=== PATIENT | male | born 1950 | race Two or more races ===

== ENCOUNTER 2024-07-20 20:13 | Inpatient (IN) | payer OTHER ==
[~2024-07-20] VITALS: Ht 175.3 cm; Wt 82.6 kg
[2024-07-20 20:48] VITALS: PULSE 120; RESP 20; O2SAT 100
[2024-07-20 20:48] LABS: APPEARANCE,URINE CLEAR (CLEAR); BILIRUBIN,URINE NEGATIVE (NEGATIVE); COLOR,URINE YELLOW (YELLOW); GLUCOSE, URINE (UA) NEGATIVE (NEGATIVE); KETONES,URINE NEGATIVE (NEGATIVE); LEUKOCYTE ESTERASE ,URINE NEGATIVE (NEGATIVE); NITRATE,URINE NEGATIVE (NEGATIVE); OCCULT BLOOD,URINE MODERATE (NEGATIVE); PH,URINE 5.5 (5.0-8.0); PH,URINE DRUG SCREEN 5.5 (5.0-8.0); PROTEIN,URINE 30-70 mg/dL (NEGATIVE); UROBILINOGEN,URINE <=1.0 mg/dL (<=1.0)
[2024-07-20 20:48] LABS: BASOPHILS % (AUTO) 0.3 % (0.0-2.0); EOSINOPHILS % (AUTO) 0.1 % (1.0-6.0); HEMATOCRIT 30.5 % (41-53); HEMOGLOBIN 9.9 g/dL (13.5-17.5); LYMPHOCYTES # (AUTO) 1.3 K/uL (1.0-4.8); LYMPHOCYTES % (AUTO) 13.1 % (22.0-44.0); MEAN CORPUSCULAR HEMOGLOBIN 30.2 pg (26.0-34.0); MEAN CORPUSCULAR HGB CONC 32.5 G/dL (31.0-37.0); MEAN CORPUSCULAR VOLUME 93 fL (80-100); MONOCYTES # (AUTO) 0.4 K/uL (0.1-1.0); MONOCYTES % (AUTO) 4.3 % (2.0-9.0); NEUTROPHILS # (AUTO) 8.3 K/uL (1.8-7.7); NEUTROPHILS % (AUTO) 82.2 % (40.0-70.0); PLATELET COUNT (AUTO) 213 K/uL (150-450); RED BLOOD CELL COUNT(AUTO) 3.28 MIL/uL (4.50-5.90); RED CELL DISTRIBUTION WIDTH 16.1 % (11.5-14.5); WHITE BLOOD COUNT (AUTO) 10.1 K/uL (4.5-11.0)
[2024-07-20 20:54] LABS: WBC,URINE 0-2 /HPF (0-5)
[2024-07-20 20:55] LABS: ANION GAP 16 mmol/L (8-16); CALCIUM, TOTAL 8.8 mg/dL (8.8-10.5); CARBON DIOXIDE 19 mmol/L (22-29); CHLORIDE 104 mmol/L (98-107); CREATININE 2.63 mg/dL (0.60-1.30); GLOMERULAR FILTR. RATE CALC 24 mL/min (>60); GLUCOSE,RANDOM 160 mg/dL (70-110); POTASSIUM 5.1 mmol/L (3.5-5.1); SODIUM SERUM 139 mmol/L (136-145); UREA NITROGEN, BLOOD 19 mg/dL (7-18)
[2024-07-20 20:55] LABS: ALCOHOL, URINE DRUG SCREEN NEGATIVE (NEGATIVE); AMPHET/METH SCREEN,URINE NEGATIVE (NEGATIVE); BACTERIA,URINE Few /HPF (None Seen); BARBITURATE SCREEN, URINE NEGATIVE (NEGATIVE); BENZODIAZEPINES SCREEN,URINE NEGATIVE (NEGATIVE); CANNABINOID SCREEN,URINE NEGATIVE (NEGATIVE); COCAINE SCREEN,URINE NEGATIVE (NEGATIVE); HYALINE CASTS, URINE 0-2 /LPF (None Seen); METHADONE SCREEN, URINE NEGATIVE (NEGATIVE); MUCUS,URINE Few LPF (None Seen); OPIATE SCREEN,URINE NEGATIVE (NEGATIVE); PHENCYCLIDINE SCREEN,URINE NEGATIVE (NEGATIVE); SQUAMOUS EPITHELIAL CELL,UR Few /LPF (None Seen)
[2024-07-20 20:57] LABS: ALCOHOL, BLOOD (SERUM) < 3 mg/dL (0-10); LIPASE 54 U/L (16-77)
[2024-07-20] MEDS ORDERED: IOHEXOL 350 MG/ML 100 ML VIAL ONE (20:58)
[2024-07-20] MEDS ORDERED: SODIUM CHLORIDE 0.9% 100 ML ONE (20:58)
[2024-07-20] MEDS ORDERED: 0.9% SODIUM CHLORIDE 10 ML SYRINGE IVP ONE (20:58)
[2024-07-20 21:00] LABS: PROTHROMBIN TIME 11.2 SEC (9.4-11.6)
[2024-07-20 21:03] LABS: HEMOGLOBIN A1C 5.4 % (3.8-5.6)
[2024-07-20 21:08] LABS: B-TYPE NATRIURETIC PEPTIDE 42 pg/mL (0-100)
[2024-07-20 21:12] LABS: LACTIC ACID 9.9 mmol/L (0.4-2.0)
[2024-07-20 21:13] LABS: ALANINE AMINOTRANSFERASE 31 U/L (12-78); ALBUMIN 3.6 g/dL (3.4-5.0); ALKALINE PHOSPHATASE 59 U/L (46-116); ASPARTATE AMINOTRANSFERASE 37 U/L (15-37); BILIRUBIN,TOTAL 0.9 mg/dL (0.1-1.0); CHOL/HDL RATIO 4.3 (4.2-7.3); CHOLESTEROL 243 mg/dL (131-200); HDL CHOLESTEROL 57 mg/dL (40-60); LDL CHOL (CALC.) 132 mg/dL (0-130); TOTAL PROTEIN, SERUM 6.8 g/dL (6.4-8.2); TRIGLYCERIDES 270 mg/dL (15-150); TROPONIN I-HIGH SENSITIVITY 24 ng/L (<76)
[2024-07-20 21:34] LABS: ABG BASE EXCESS -13.4 mmol/L (-2.0-3.0); ABG CARBOXYHEMOGLOBIN 0.6 % (0.5-1.5); ABG HCO3 14.4 mmol/L (21.0-28.0); ABG OXYGEN CONTENT 14.4 mL/dL (15.0-23.0); ABG OXYGEN SATURATION 99.7 % (94.0-98.0); ABG OXYHEMOGLOBIN 98.1 % (94.0-98.0); ABG PCO2 43 mmHg (32.0-48.0); ABG TOTAL HEMOGLOBIN 9.6 G/dL (13.5-17.5); SOURCE, BLOOD GAS ARTERIAL; TEMPERATURE, FAHRENHEIT, BG 94.9 FAHREN (96.0-98.6)
[2024-07-20 21:35] LABS: ABG PH 7.169 (7.350-7.450); ALLEN TEST, BLOOD GAS Positive; O2 DEVICE,BLOOD GAS VENTILATOR (ROOM AIR); PEEP,BG 5 cm H2O; PO2, ARTERIAL BG 393.7 mmHg (83.0-108.0); SITE, BLOOD GAS RT RADIAL; SPONTANEOUS VT, BG 413 ml; VT, ABG 410 ml
[2024-07-20] MEDS: SODIUM CHLORIDE 0.9% 2,350 ML IV ONE (21:44)
[2024-07-20] MEDS: CefTRIAXone 1 GM/DEXTROSE 50 ML IV ONE (21:44)
[2024-07-20 22:04] LABS: ACETAMINOPHEN < 2 mcg/mL (10-30)
[2024-07-20] MEDS: PERTUSS(ACELL),DIPH,TET/PF 0.5 ML SYRINGE [ADULT] IM. ONE (22:26)
[2024-07-20] MEDS: LevETIRAcetam 1,000 MG in DEXTROSE 5%-WATER 100 ML IV ONE (22:29)
[2024-07-20] MEDS: PIPERACILLIN SODIUM/TAZOBACTAM 2.25 GM in DEXTROSE 5%-WATER 50 ML IV SCH (22:29)
[2024-07-20] MEDS ORDERED: ACETAMINOPHEN 650 MG RECTAL SUPPOSITORY PR PRN (22:30)
[2024-07-20] MEDS ORDERED: ZOLPIDEM TARTRATE 5 MG TABLET PO PRN (22:30)
[2024-07-20] MEDS ORDERED: ONDANSETRON HCL 4 MG/2 ML VIAL IVP PRN (22:30)
[2024-07-20] MEDS ORDERED: MAGNESIUM HYDROXIDE SUSPENSION 30 ML UDCUP PO PRN (22:30)
[2024-07-20] MEDS ORDERED: BISACODYL 10 MG RECTAL RECTAL SUPPOSITORY PR PRN (22:30)
[2024-07-20 22:52] VITALS: PULSE 63; RESP 20; O2SAT 100
[2024-07-20] MEDS: VANCOMYCIN 1GM/WATER(PEG/NADA) 200 ML IV ONE (23:21)
[2024-07-20] MEDS: SODIUM CHLORIDE 0.9% 1,000 ML IV ONE (23:21)
[2024-07-21] VITALS (15 sets, daily range): BP systolic 92–133; BP diastolic 54–71; PULSE 55–135; RESP 13–33; TEMP 92.7–99.7; O2SAT 94–99
[2024-07-21] MEDS: HEPARIN SODIUM,PORCINE 5,000 UNITS/ML VIAL SQ SCH (00:25)
[2024-07-21] MEDS: NOREPINEPHRINE 8 MG/0.9 % NACL 250 ML IV PRN ×2 (00:26→17:20)
[2024-07-21 03:05] LABS: TROPONIN I-HIGH SENSITIVITY 25 ng/L (<76)
[2024-07-21] MEDS: PROPOFOL 1000 MG/ISO-OSM 100 ML IV PRN ×2 (04:42→23:15)
[2024-07-21 06:27] LABS: CALCIUM, TOTAL 7.4 mg/dL (8.8-10.5); CREATININE 1.78 mg/dL (0.60-1.30); POTASSIUM 3.9 mmol/L (3.5-5.1)
[2024-07-21] MEDS: ETHYL ALCOHOL 62% ANTISEPTIC NASAL SANITIZER 0.6 ML AMPUL NASAL SCH (08:53)
[2024-07-21] MEDS: DOCUSATE SODIUM 100 MG CAPSULE PO SCH (08:54)
[2024-07-21] MEDS: VANCOMYCIN 750 MG/WATER(PEG) 150 ML IV SCH (08:54)
[2024-07-21] MEDS: PANTOPRAZOLE SODIUM 40 MG DR TABLET PO SCH (08:55)
[2024-07-21 09:44] LABS: TROPONIN I-HIGH SENSITIVITY 40 ng/L (<76)
[2024-07-21 10:21] LABS: ABG BASE EXCESS -7.9 mmol/L (-2.0-3.0); ABG CARBOXYHEMOGLOBIN 0.2 % (0.5-1.5); ABG HCO3 18.9 mmol/L (21.0-28.0); ABG METHEMOGLOBIN 0.3 % (0.0-1.5); ABG OXYGEN CONTENT 14.3 mL/dL (15.0-23.0); ABG OXYGEN SATURATION 95.2 % (94.0-98.0); ABG OXYHEMOGLOBIN 94.7 % (94.0-98.0); ABG PCO2 29 mmHg (32.0-48.0); ABG PH 7.392 (7.350-7.450); ABG TOTAL HEMOGLOBIN 10.7 G/dL (13.5-17.5); ALLEN TEST, BLOOD GAS Positive; PO2, ARTERIAL BG 76.8 mmHg (83.0-108.0); SITE, BLOOD GAS RT RADIAL; SOURCE, BLOOD GAS ARTERIAL; TEMPERATURE, FAHRENHEIT, BG 99.7 FAHREN (96.0-98.6)
[2024-07-21 10:22] LABS: ABG A-A DIFF O2 174.9 mmHg (10-20.0); O2 DEVICE,BLOOD GAS VENTILATOR (ROOM AIR); PEEP,BG 5 cm H2O; SPONTANEOUS VT, BG 765 ml; VT, ABG 410 ml
[2024-07-21] MEDS: FentaNYL CIT 1000MCG/0.9% NACL 100 ML IV PRN (12:53)
[2024-07-21] MEDS: PHENYLEPHRINE 200 MG/D5%-WATER 250 ML IV PRN (18:54)
[2024-07-21] MEDS: DIGOXIN 250 MCG/ML 2 ML AMP IVP ONE (23:35)
[2024-07-22] VITALS (16 sets, daily range): BP systolic 90–125; BP diastolic 46–69; PULSE 53–134; RESP 17–24; TEMP 92.1–98.8; O2SAT 93–99
[2024-07-22 05:29] LABS: BASOPHILS % (AUTO) 0.1 % (0.0-2.0); EOSINOPHILS % (AUTO) 0 % (1.0-6.0); HEMATOCRIT 32.9 % (41-53); HEMOGLOBIN 10.7 g/dL (13.5-17.5); LYMPHOCYTES # (AUTO) 1.3 K/uL (1.0-4.8); LYMPHOCYTES % (AUTO) 10.4 % (22.0-44.0); MEAN CORPUSCULAR HEMOGLOBIN 30.5 pg (26.0-34.0); MEAN CORPUSCULAR HGB CONC 32.5 G/dL (31.0-37.0); MEAN CORPUSCULAR VOLUME 94 fL (80-100); MONOCYTES % (AUTO) 8.3 % (2.0-9.0); NEUTROPHILS % (AUTO) 81.2 % (40.0-70.0); PLATELET COUNT (AUTO) 203 K/uL (150-450); RED CELL DISTRIBUTION WIDTH 16.7 % (11.5-14.5); WHITE BLOOD COUNT (AUTO) 12.3 K/uL (4.5-11.0)
[2024-07-22 05:40] LABS: CALCIUM, TOTAL 7.5 mg/dL (8.8-10.5); CREATININE 1.64 mg/dL (0.60-1.30); POTASSIUM 3.7 mmol/L (3.5-5.1)
[2024-07-22] MEDS ORDERED: VANCOMYCIN 1GM/WATER(PEG/NADA) 200 ML IV SCH (08:00)
[2024-07-22] MEDS ORDERED: SODIUM CHLORIDE 0.9% 250 ML IV ONE (08:06)
[2024-07-22] MEDS: VANCOMYCIN 1.25 GM/WATER(PEG) 250 ML IV SCH (08:10)
[2024-07-22] MEDS: DEXTROSE 5%-0.45% SODIUM CHL 1,000 ML IV SCH (08:55)
[2024-07-22] MEDS: PANTOPRAZOLE SODIUM 40 MG/VIAL IVP SCH (08:55)
[2024-07-22] MEDS: PIPERACILLIN/TAZO 3.375 GM/D5W 50 ML IV SCH (09:10)
[2024-07-22 11:39] LABS: CREATININE,URINE RANDOM 165.7 mg/dL (30.0-125.0)
[2024-07-22] MEDS: ALBUMIN HUMAN 5%-12.5GM/250ML 250 ML IV ONE (11:47)
[2024-07-22] MEDS: DIGOXIN 250 MCG/ML 2 ML AMP IVP ONE (14:09)
[2024-07-22] MEDS: AMIODARONE HCL 150 MG in DEXTROSE 5%-WATER 97 ML IV ONE (14:27)
[2024-07-22] MEDS: AMIODARONE HCL 360 MG in DEXTROSE 5%-WATER 242.8 ML IV ONE (14:41)
[2024-07-22] MEDS: AMIODARONE HCL 540 MG in DEXTROSE 5%-WATER 250 ML IV ONE (20:20)
[2024-07-23] VITALS (14 sets, daily range): BP systolic 101–169; BP diastolic 54–96; PULSE 43–130; RESP 11–34; TEMP 97.7–100.1; O2SAT 80–100
[2024-07-23 05:56] LABS: BASOPHILS % (AUTO) 0.1 % (0.0-2.0); EOSINOPHILS % (AUTO) 0.2 % (1.0-6.0); HEMATOCRIT 25.9 % (41-53); HEMOGLOBIN 8.8 g/dL (13.5-17.5); LYMPHOCYTES # (AUTO) 0.7 K/uL (1.0-4.8); LYMPHOCYTES % (AUTO) 8.8 % (22.0-44.0); MEAN CORPUSCULAR HEMOGLOBIN 30.9 pg (26.0-34.0); MEAN CORPUSCULAR HGB CONC 34.1 G/dL (31.0-37.0); MEAN CORPUSCULAR VOLUME 91 fL (80-100); MONOCYTES # (AUTO) 0.5 K/uL (0.1-1.0); MONOCYTES % (AUTO) 6.6 % (2.0-9.0); NEUTROPHILS # (AUTO) 6.5 K/uL (1.8-7.7); NEUTROPHILS % (AUTO) 84.3 % (40.0-70.0); PLATELET COUNT (AUTO) 181 K/uL (150-450); RED BLOOD CELL COUNT(AUTO) 2.85 MIL/uL (4.50-5.90); RED CELL DISTRIBUTION WIDTH 16.3 % (11.5-14.5); WHITE BLOOD COUNT (AUTO) 7.7 K/uL (4.5-11.0)
[2024-07-23 06:17] LABS: ALBUMIN 2.2 g/dL (3.4-5.0); BILIRUBIN,TOTAL 0.8 mg/dL (0.1-1.0); CALCIUM, TOTAL 7.4 mg/dL (8.8-10.5); CREATININE 2.82 mg/dL (0.60-1.30); PHOSPHORUS 2.9 mg/dL (2.5-4.9); POTASSIUM 3.5 mmol/L (3.5-5.1); TOTAL PROTEIN, SERUM 5.2 g/dL (6.4-8.2)
[2024-07-23] MEDS ORDERED: SODIUM CHLORIDE 0.9% 500 ML IV ONE (07:06)
[2024-07-23 11:07] LABS: LACTIC ACID 1.9 mmol/L (0.4-2.0)
[2024-07-23 11:10] LABS: ANION GAP 12 mmol/L (8-16); CALCIUM, TOTAL 7.4 mg/dL (8.8-10.5); CARBON DIOXIDE 19 mmol/L (22-29); CHLORIDE 107 mmol/L (98-107); CREATININE 2.93 mg/dL (0.60-1.30); GLOMERULAR FILTR. RATE CALC 21 mL/min (>60); GLUCOSE,RANDOM 107 mg/dL (70-110); POTASSIUM 3.9 mmol/L (3.5-5.1); SODIUM SERUM 138 mmol/L (136-145); UREA NITROGEN, BLOOD 21 mg/dL (7-18)
[2024-07-23] MEDS: POTASSIUM CHLORIDE 10% 40 MEQ/30 ML LIQUID UDCUP NG ONE (13:06)
[2024-07-23] MEDS: ALBUMIN HUMAN 25%-25GM/100ML 100 ML IV SCH (13:09)
[2024-07-23] MEDS ORDERED: AMIODARONE HCL 750 MG in DEXTROSE 5%-WATER 485 ML IV SCH (14:15)
[2024-07-23 16:57] LABS: ABG BASE EXCESS -11.6 mmol/L (-2.0-3.0); ABG CARBOXYHEMOGLOBIN 0.7 % (0.5-1.5); ABG HCO3 15.8 mmol/L (21.0-28.0); ABG METHEMOGLOBIN 0.3 % (0.0-1.5); ABG OXYGEN CONTENT 11.4 mL/dL (15.0-23.0); ABG OXYGEN SATURATION 88.7 % (94.0-98.0); ABG OXYHEMOGLOBIN 87.8 % (94.0-98.0); ABG PCO2 33 mmHg (32.0-48.0); ABG PH 7.282 (7.350-7.450); ABG TOTAL HEMOGLOBIN 9.2 G/dL (13.5-17.5); PO2, ARTERIAL BG 56.9 mmHg (83.0-108.0); SOURCE, BLOOD GAS ARTERIAL; TEMPERATURE, FAHRENHEIT, BG 98.5 FAHREN (96.0-98.6)
[2024-07-23 16:58] LABS: SITE, BLOOD GAS ARTERIAL LINE
[2024-07-23 16:59] LABS: O2 DEVICE,BLOOD GAS VENTILATOR (ROOM AIR); PEEP,BG 5 cm H2O; VT, ABG 410 ml
[2024-07-23] MEDS: SODIUM BICARBONATE [ADULT] 8.4% 50 MEQ/50 ML SYRINGE IVP ONE (18:04)
[2024-07-23 19:24] LABS: ABG BASE EXCESS -8.3 mmol/L (-2.0-3.0); ABG CARBOXYHEMOGLOBIN 0.3 % (0.5-1.5); ABG HCO3 18.2 mmol/L (21.0-28.0); ABG METHEMOGLOBIN 0.3 % (0.0-1.5); ABG OXYGEN CONTENT 11.3 mL/dL (15.0-23.0); ABG OXYGEN SATURATION 97.5 % (94.0-98.0); ABG OXYHEMOGLOBIN 96.9 % (94.0-98.0); ABG PCO2 40 mmHg (32.0-48.0); ABG PH 7.282 (7.350-7.450); ABG TOTAL HEMOGLOBIN 8.1 G/dL (13.5-17.5); PO2, ARTERIAL BG 119.4 mmHg (83.0-108.0); SOURCE, BLOOD GAS ARTERIAL; TEMPERATURE, FAHRENHEIT, BG 99.1 FAHREN (96.0-98.6)
[2024-07-23 19:25] LABS: O2 DEVICE,BLOOD GAS VENTILATOR (ROOM AIR); PEEP,BG 5 cm H2O; SITE, BLOOD GAS ARTERIAL LINE; VT, ABG 410 ml
[2024-07-24] VITALS (21 sets, daily range): BP systolic 100–139; BP diastolic 50–70; PULSE 46–93; RESP 18–37; TEMP 96.2–97.6; O2SAT 93–100
[2024-07-24 06:23] LABS: CALCIUM, TOTAL 7.4 mg/dL (8.8-10.5); CREATININE 2.82 mg/dL (0.60-1.30); MAGNESIUM 2.1 mg/dL (1.80-2.40); PHOSPHORUS 3.9 mg/dL (2.5-4.9); POTASSIUM 3.6 mmol/L (3.5-5.1)
[2024-07-25] VITALS (15 sets, daily range): BP systolic 90–137; BP diastolic 51–74; PULSE 50–71; RESP 18–38; TEMP 97–97.8; O2SAT 93–100
[2024-07-25 06:39] LABS: CALCIUM, TOTAL 7.7 mg/dL (8.8-10.5); CREATININE 2.63 mg/dL (0.60-1.30); MAGNESIUM 2.3 mg/dL (1.80-2.40); PHOSPHORUS 3.3 mg/dL (2.5-4.9); POTASSIUM 3.5 mmol/L (3.5-5.1); VANCOMYCIN,RANDOM 23.2 mcg/mL (25.0-50.0)
[2024-07-25] MEDS: VANCOMYCIN 750 MG/WATER(PEG) 150 ML IV SCH (08:49)
[2024-07-25] MEDS: DEXTRAN 70 0.1%/HYPROMELL 0.3% 0.9 ML OPHTHALMIC SOLUTION [PF] OU SCH (12:00)
[2024-07-26] VITALS (13 sets, daily range): BP systolic 99–120; BP diastolic 55–63; PULSE 49–66; RESP 20–36; TEMP 96.8–98.7; O2SAT 94–99
[2024-07-26] MEDS ORDERED: SODIUM CHLORIDE 0.9% 500 ML IV ONE (03:06)
[2024-07-26 06:41] LABS: CREATININE 2.46 mg/dL (0.60-1.30); MAGNESIUM 2.3 mg/dL (1.80-2.40); PHOSPHORUS 2.9 mg/dL (2.5-4.9); POTASSIUM 3.3 mmol/L (3.5-5.1)
[2024-07-26] MEDS ORDERED: POTASSIUM CHLORIDE 10 MEQ ER TABLET PO ONE (08:15)
[2024-07-26] MEDS: POTASSIUM CHLORIDE 10% 40 MEQ/30 ML LIQUID UDCUP NG ONE ×2 (08:57→20:06)
[2024-07-26 17:26] LABS: CALCIUM, TOTAL 7.9 mg/dL (8.8-10.5); CREATININE 2.44 mg/dL (0.60-1.30)
[2024-07-26 18:05] LABS: COVID AG,FIA SOURCE NASAL SWAB
[2024-07-26 18:25] LABS: SARS-COV2 (COVID) ANTIGEN,FIA Negative (Negative)
== END 2024-07-26 22:10 | disposition short-term general hospital (02) | DRG 870 ==
LOC: EMS 20:13 → EDH 22:21 → ICU 07-21 01:25
PROVIDERS: ADMIT Internal Medicine; ATTEND Internal Medicine
PROC: 5A1955Z Respiratory Ventilation, Greater than 96 Consecutive Hours (ICD-10-PCS; principal; 2024-07-20)
PROC: 0BH17EZ Insertion of Endotracheal Airway into Trachea, Via Natural or Artificial Opening (ICD-10-PCS; 2024-07-20)
PROC: 4A00X4Z Measurement of Central Nervous Electrical Activity, External Approach (ICD-10-PCS; 2024-07-24)
DX: A40.8 Other streptococcal sepsis (principal); G92.8 Other toxic encephalopathy; J69.0 Pneumonitis due to inhalation of food and vomit; R40.20 Unspecified coma; R65.21 Severe sepsis with septic shock; J96.01 Acute respiratory failure with hypoxia; J18.9 Pneumonia, unspecified organism; N17.0 Acute kidney failure with tubular necrosis; E87.20 Acidosis, unspecified; I48.92 Unspecified atrial flutter; M62.82 Rhabdomyolysis; I47.10 Supraventricular tachycardia, unspecified; G93.1 Anoxic brain damage, not elsewhere classified; I50.20 Unspecified systolic (congestive) heart failure; Z99.11 Dependence on respirator [ventilator] status; D64.9 Anemia, unspecified; R13.10 Dysphagia, unspecified; R73.9 Hyperglycemia, unspecified; B95.4 Other streptococcus as the cause of diseases classified elsewhere; I25.5 Ischemic cardiomyopathy; E87.6 Hypokalemia; N18.9 Chronic kidney disease, unspecified; I49.9 Cardiac arrhythmia, unspecified; I35.2 Nonrheumatic aortic (valve) stenosis with insufficiency; J43.9 Emphysema, unspecified; N28.1 Cyst of kidney, acquired; S80.821A Blister (nonthermal), right lower leg, initial encounter; S40.821A Blister (nonthermal) of right upper arm, initial encounter; X58.XXXA Exposure to other specified factors, initial encounter; Y93.89 Activity, other specified; Y92.89 Other specified places as the place of occurrence of the external cause; Y99.8 Other external cause status
CPT/HCPCS: 31500; 36600; 51702; 70496; 70498; 71045; 71250; 76770; 80048; 80053; 80061; 80202; 80307; 81001; 82550; 82570; 82805; 83036; 83605; 83690; 83735; 83880; 84100; 84145; 84300; 84484; 84540; 85025; 85610; 85730; 86850; 86900; 86901; 87040; 87070; 87077; 87081; 87186; 87205; 90715; 93005; 93306; 93970; 94002; 94003; 95816; 99291; G0238; G0480; G0481; J0282; J0696; J0712; J1160; J1644; J2370; J2470; J2543; J2704; J3010; J3490; J7030; J7040; J7050; J7060; P9041; P9046; 36415-L1; 36415-TC; 70450; 70450-TC